=== PATIENT | female | born 1965 | race Caucasian/White ===

== ENCOUNTER 2019-06-19 22:19 | Inpatient (IN) | payer OTHER ==
[~2019-06-19] VITALS: Ht 167.6 cm; Wt 99.8 kg
[2019-06-19 22:24] VITALS: Ht 167.6 cm; Wt 99.8 kg
[2019-06-19 23:44] LABS: ALBUMIN 3.6 g/dL (3.4-5.0); ALKALINE PHOSPHATASE 127 U/L (46-116); ALT/SGPT 36 U/L (14-59); AST/SGOT 31 U/L (15-37); BILIRUBIN TOTAL 0.4 mg/dL (0.20-1.00); CALCIUM 9.7 mg/dL (8.5-10.1); CARBON DIOXIDE 23.4 mmol/L (21-32); CHLORIDE SERUM 103 mmol/L (98-107); CREATININE SERUM 0.8 mg/dL (0.6-1.0); GFR1 > 60 mL/min; GLUCOSE SERUM 114 mg/dL (74-106); LIPASE 143 IU/L (73-393); POTASSIUM SERUM 3.9 mmol/L (3.5-5.1); SODIUM SERUM 139 mmol/L (136-145); TOTAL PROTEIN, SERUM 7.9 g/dL (6.4-8.2)
[2019-06-19 23:52] LABS: BASOPHIL % 0.2 % (0-2); RED CELL DISTRIBUTION WIDTH 19.5 % (11.5-14.5)
[2019-06-20 01:02] LABS: PLATELET COUNT 511 x10^3mcL (130-400)
[2019-06-20 02:40] VITALS: BP 136/76
[2019-06-20 03:02] LABS: RED BLOOD CELLS 4.25 M/mm3 (4.10-5.10)
[2019-06-20 04:07] LABS: IRON 15 ug/dL (50-170); TOTAL IRON BINDING CAPACITY 612 ug/dL (250-450)
[2019-06-20 05:16] LABS: UA SPECIFIC GRAVITY 1.015 (1.005-1.035); microscopic required? YES; urine erythrocyte 2+ (NEGATIVE)
[2019-06-20 05:25] LABS: AMPHETAMINE QUAL UR NONE DETECTED (See below)
[2019-06-20 05:29] VITALS: BP 113/60
[2019-06-20 07:31] LABS: BASOPHIL % 0.4 % (0-2)
[2019-06-20 07:35] LABS: CALCIUM 8.7 mg/dL (8.5-10.1); CARBON DIOXIDE 24.9 mmol/L (21-32); CHLORIDE SERUM 107 mmol/L (98-107); CREATININE SERUM 0.7 mg/dL (0.6-1.0); GFR1 > 60 mL/min; GLUCOSE SERUM 96 mg/dL (74-106); MAGNESIUM 2.1 mg/dL (1.8-2.4); PHOSPHOROUS 4.9 mg/dL (2.5-4.9); POTASSIUM SERUM 4.2 mmol/L (3.5-5.1); SODIUM SERUM 141 mmol/L (136-145)
[2019-06-20 08:00] VITALS: BP 143/81
[2019-06-20 08:33] LABS: RED CELL DISTRIBUTION WIDTH 17.7 % (11.5-14.5)
[2019-06-20 08:34] LABS: PLATELET COUNT 506 x10^3mcL (130-400)
[2019-06-20 09:57] LABS: rbc morphology (normal/abnorm) ABNORMAL (NORMAL)
[2019-06-20 09:58] LABS: ovalocyte/elliptocyte 1+
[2019-06-20 16:31] VITALS: BP 112/58
[2019-06-20 22:19] VITALS: BP 119/69
[2019-06-21 05:25] VITALS: BP 102/56
[2019-06-21 07:17] LABS: BASOPHIL % 0.3 % (0-2)
[2019-06-21 07:45] LABS: CARBON DIOXIDE 21.5 mmol/L (21-32); CHLORIDE SERUM 107 mmol/L (98-107); CREATININE SERUM 0.6 mg/dL (0.6-1.0); GFR1 > 60 mL/min; GLUCOSE SERUM 83 mg/dL (74-106); PHOSPHOROUS 3.6 mg/dL (2.5-4.9); POTASSIUM SERUM 3.6 mmol/L (3.5-5.1); SODIUM SERUM 140 mmol/L (136-145)
[2019-06-21 08:36] LABS: RED CELL DISTRIBUTION WIDTH 19.6 % (11.5-14.5)
[2019-06-21 08:47] VITALS: BP 108/66
[2019-06-21 10:51] LABS: PLATELET COUNT 466 x10^3mcL (130-400)
[2019-06-21 12:26] VITALS: BP 96/53
[2019-06-21 12:55] VITALS: BP 96/53
== END 2019-06-21 14:04 | disposition home or self-care (01) | DRG 247 ==
LOC: ED 22:19 → DU 06-20 00:11 → MU 06-20 00:11 → DU 06-20 01:15 → MU 06-20 07:20
PROVIDERS: Emergency Medicine; ADMIT Internal Medicine
DX: K56.600 Partial intestinal obstruction, unspecified as to cause (principal); D50.9 Iron deficiency anemia, unspecified; Z98.84 Bariatric surgery status; Z68.28 Body mass index [BMI] 28.0-28.9, adult; Z90.49 Acquired absence of other specified parts of digestive tract; Z91.040 Latex allergy status; Z80.9 Family history of malignant neoplasm, unspecified; Z82.49 Family history of ischemic heart disease and other diseases of the circulatory system; Z83.3 Family history of diabetes mellitus
CPT/HCPCS: C9113; G0378; J1885; J2060; J2270; J2405; J3010; J3490; J7030; Q0092; Q9967